=== PATIENT | female | born 1955 | race American Indian/Alaskan Native ===

== ENCOUNTER 2021-05-14 08:00 | Outpatient (CLI) | payer OTHER | END 2021-05-14 08:30 | disposition home or self-care (01) | LOC: PPH VACUNA 08:00 | PROVIDERS: ATTEND Emergency Medicine Pediatric Emergency Medicine | DX: Z23 Encounter for immunization (principal) ==

== ENCOUNTER 2024-02-23 07:06 | Outpatient (CLI) | payer OTHER | END 2024-02-23 07:08 | disposition home or self-care (01) | LOC: SONOGRAMA 07:06 | PROVIDERS: ATTEND Obstetrics & Gynecology | DX: N64.4 Mastodynia (principal); I10 Essential (primary) hypertension; E11.8 Type 2 diabetes mellitus with unspecified complications; E78.49 Other hyperlipidemia; D64.89 Other specified anemias; E78.9 Disorder of lipoprotein metabolism, unspecified; N39.0 Urinary tract infection, site not specified; R80.8 Other proteinuria; M25.50 Pain in unspecified joint; R79.82 Elevated C-reactive protein (CRP); R70.0 Elevated erythrocyte sedimentation rate; E56.8 Deficiency of other vitamins; D51.8 Other vitamin B12 deficiency anemias; D50.8 Other iron deficiency anemias; R79.1 Abnormal coagulation profile; N92.6 Irregular menstruation, unspecified; Z11.3 Encounter for screening for infections with a predominantly sexual mode of transmission; Z11.59 Encounter for screening for other viral diseases; R74.8 Abnormal levels of other serum enzymes; E83.51 Hypocalcemia; E83.52 Hypercalcemia ==

== ENCOUNTER 2025-02-04 14:20 | Emergency (ER) | payer OTHER ==
[~2025-02-04] VITALS: Ht 165.1 cm; Wt 64.0 kg
[2025-02-04] MEDS ORDERED: JENTADUETO XR1 EAC1 (16:11)
[2025-02-04] MEDS ORDERED: [UNRECOGNIZED DRUG - OTHER] (16:11)
[2025-02-04] MEDS ORDERED: ATORVASTATIN CA40 MG (16:11)
[2025-02-04] MEDS ORDERED: LANTUS SOL100 UNIT/1 (16:12)
[2025-02-04] MEDS ORDERED: ALDACTONE25 MG (16:12)
[2025-02-04] MEDS ORDERED: CILOSTAZOL100 MG (16:12)
[2025-02-04] MEDS ORDERED: PLAVIX75 MG (16:12)
[2025-02-04] MEDS ORDERED: ASA81 MG (16:12)
[2025-02-04] MEDS ORDERED: NIFEDIPINE20 MG (16:13)
[2025-02-04] MEDS ORDERED: COZAAR50 MG (16:13)
[2025-02-04] MEDS ORDERED: ACETAMINOPHEN 500 MG GEL..CAP PO ONE (16:45)
[2025-02-04] MEDS ORDERED: DEXAMETHASONE SODIUM PHOSPHATE 4 MG/ML VIAL IM ONE (16:45)
[2025-02-04] MEDS ORDERED: KETOROLAC TROMETHAMINE 60 MG VIAL IM ONE (16:45)
[2025-02-04] MEDS ORDERED: ORPHENADRINE CITRATE 30 MG/ML AMPUL IM ONE (16:45)
[2025-02-04] MEDS ORDERED: ENALAPRILAT DIHYDRATE 1.25 MG/ML VIAL IV ONE (18:45)
[2025-02-04] MEDS ORDERED: NORFLEX100MG PO (20:17)
[2025-02-04] MEDS ORDERED: PEPCID AC20 MG PO (20:17)
[2025-02-04] MEDS ORDERED: KETO10TA2 PO (20:17)
[2025-02-04] MEDS ORDERED: NIFEDIPINE 10 MG CAPSULE PO ONE (21:00)
== END 2025-02-04 21:37 | disposition home or self-care (01) ==
LOC: ER 14:21
DX: G89.11 Acute pain due to trauma (principal); M79.672 Pain in left foot; I10 Essential (primary) hypertension; Z88.7 Allergy status to serum and vaccine; Z88.8 Allergy status to other drugs, medicaments and biological substances
CPT/HCPCS: 73630; 96365; 96372; 99283; J1100; J1885; J2360; J3490

== ENCOUNTER 2025-02-15 13:32 | Outpatient (CLI) | payer OTHER ==
[~2025-02-15 13:32] MED LIST: ALDACTONE25 MG; ASA81 MG; ATORVASTATIN CA40 MG; CILOSTAZOL100 MG; COZAAR50 MG; JENTADUETO XR1 EAC1; KETO10TA2 PO; LANTUS SOL100 UNIT/1; NIFEDIPINE20 MG; NORFLEX100MG PO; PEPCID AC20 MG PO; PLAVIX75 MG; [UNRECOGNIZED DRUG - OTHER]
== END 2025-02-15 13:41 | disposition home or self-care (01) ==
LOC: RAD 13:32
PROVIDERS: ATTEND Orthopaedic Surgery
DX: M79.672 Pain in left foot (principal)

== ENCOUNTER 2025-03-22 14:00 | Outpatient (CLI) | payer OTHER | END 2025-03-22 14:04 | disposition home or self-care (01) | LOC: RAD 14:00 | PROVIDERS: ATTEND Orthopaedic Surgery | DX: M79.642 Pain in left hand (principal); M65.322 Trigger finger, left index finger ==

== ENCOUNTER → 2025-04-02 | Outpatient (CLI) | payer OTHER | END | disposition home or self-care (01) | LOC: RAD 11:42 | PROVIDERS: ATTEND Orthopaedic Surgery | DX: M25.531 Pain in right wrist (principal) ==